=== PATIENT | male | born 1950 | race Asian ===

== ENCOUNTER 2018-03-27 17:34 | Emergency (ER) | payer SELFPAY | END 2018-03-27 19:02 | disposition left against medical advice (07) | LOC: EMS 17:36 | DX: Z00.8 Encounter for other general examination (principal); Z53.21 Procedure and treatment not carried out due to patient leaving prior to being seen by health care provider ==

== ENCOUNTER 2019-07-06 23:54 | Emergency (ER) | payer MEDICARE ==
[~2019-07-06] VITALS: Ht 167.6 cm; Wt 72.7 kg
[2019-07-06 23:59] VITALS: BP 184/130
== END 2019-07-07 00:36 | disposition left against medical advice (07) ==
LOC: EMS 23:55
DX: I10 Essential (primary) hypertension (principal); J45.909 Unspecified asthma, uncomplicated; E11.9 Type 2 diabetes mellitus without complications; E78.00 Pure hypercholesterolemia, unspecified; F17.210 Nicotine dependence, cigarettes, uncomplicated; Z86.73 Personal history of transient ischemic attack (TIA), and cerebral infarction without residual deficits; Z79.4 Long term (current) use of insulin

== ENCOUNTER 2019-07-10 12:23 | Emergency (ER) | payer MEDICARE ==
[~2019-07-10] VITALS: Ht 160 cm; Wt 54.5 kg
[2019-07-10] MEDS ORDERED: ACETAMINOPHEN 325 MG TABLET PO ONE (13:45)
[2019-07-10 15:15] VITALS: BP 159/106
[2019-07-11 07:57] LABS: GLUCOSE,POINT OF CARE 163 MG/DL (70-110)
== END 2019-07-10 15:15 | disposition home or self-care (01) ==
LOC: EMS 12:25
DX: S60.222A Contusion of left hand, initial encounter (principal); E11.9 Type 2 diabetes mellitus without complications; E78.00 Pure hypercholesterolemia, unspecified; I10 Essential (primary) hypertension; Z87.891 Personal history of nicotine dependence; W22.8XXA Striking against or struck by other objects, initial encounter; Y93.89 Activity, other specified; Y92.89 Other specified places as the place of occurrence of the external cause; Y99.8 Other external cause status

== ENCOUNTER 2022-06-21 13:29 | Emergency (ER) | payer MEDICARE, OTHER ==
[~2022-06-21] VITALS: Ht 167.6 cm; Wt 65.9 kg
[2022-06-21 14:44] LABS: BASOPHILS % (AUTO) 0.3 % (0.0-2.0); EOSINOPHILS % (AUTO) 5.4 % (1.0-6.0); HEMATOCRIT 36.9 % (41-53); HEMOGLOBIN 12.4 g/dL (13.5-17.5); LYMPHOCYTES # (AUTO) 2.1 K/uL (1.0-4.8); LYMPHOCYTES % (AUTO) 26.6 % (22.0-44.0); MEAN CORPUSCULAR HEMOGLOBIN 29.5 pg (26.0-34.0); MEAN CORPUSCULAR HGB CONC 33.6 G/dL (31.0-37.0); MEAN CORPUSCULAR VOLUME 88 fL (80-100); MONOCYTES # (AUTO) 0.6 K/uL (0.1-1.0); MONOCYTES % (AUTO) 7.1 % (2.0-9.0); NEUTROPHILS # (AUTO) 4.7 K/uL (1.8-7.7); NEUTROPHILS % (AUTO) 60.6 % (40.0-70.0); PLATELET COUNT (AUTO) 274 K/uL (150-450); RED CELL DISTRIBUTION WIDTH 13.5 % (11.5-14.5)
[2022-06-21 14:52] LABS: ANION GAP 5 mmol/L (8-16); CARBON DIOXIDE 28 mmol/L (22-29); CHLORIDE 108 mmol/L (98-107); CREATININE 0.94 mg/dL (0.60-1.30); GLUCOSE,RANDOM 153 mg/dL (70-110); POTASSIUM 3.6 mmol/L (3.5-5.1); SODIUM SERUM 141 mmol/L (136-145); UREA NITROGEN, BLOOD 10 mg/dL (7-18)
[2022-06-21 14:53] LABS: CALCIUM, TOTAL 8.5 mg/dL (8.8-10.5); GLOMERULAR FILTR. RATE CALC > 60 mL/min (>60)
[2022-06-21 14:56] LABS: PROTHROMBIN TIME 10.3 SEC (9.4-11.6)
[2022-06-21 14:58] LABS: ALANINE AMINOTRANSFERASE 14 U/L (12-78); ALKALINE PHOSPHATASE 60 U/L (46-116); ASPARTATE AMINOTRANSFERASE 15 U/L (15-37); BILIRUBIN,TOTAL 0.2 mg/dL (0.1-1.0); LIPASE 57 U/L (73-393); TOTAL PROTEIN, SERUM 6.6 g/dL (6.4-8.2)
[2022-06-21 15:01] VITALS: BP 145/93
[2022-06-21] MEDS ORDERED: DOCU-350 PO (15:29)
== END 2022-06-21 15:59 | disposition home or self-care (01) ==
LOC: EMS 13:35
DX: R10.84 Generalized abdominal pain (principal); K59.00 Constipation, unspecified; J45.909 Unspecified asthma, uncomplicated; E11.9 Type 2 diabetes mellitus without complications; E78.00 Pure hypercholesterolemia, unspecified; I10 Essential (primary) hypertension; Z87.891 Personal history of nicotine dependence
CPT/HCPCS: 71045; 80053; 82962; 83690; 84484; 85025; 85610; 86850; 86900; 86901; 93005; 99285; 36415-L1; 36415-TC

== ENCOUNTER 2024-04-09 08:13 | Emergency (ER) | payer MEDICARE, OTHER ==
[~2024-04-09] VITALS: Ht 162.6 cm; Wt 70.5 kg
[~2024-04-09 08:13] MED LIST: DOCU-412 PO
[2024-04-09 08:23] VITALS: TEMP 97.9
[2024-04-09 08:36] LABS: COVID AG,FIA SOURCE NASAL SWAB
[2024-04-09 08:53] LABS: SARS-COV2 (COVID) ANTIGEN,FIA Negative (Negative)
[2024-04-09 08:54] LABS: INFLUENZA TYPE A NEGATIVE FOR TYPE A (NEGATIVE); INFLUENZA TYPE B NEGATIVE FOR TYPE B (NEGATIVE)
[2024-04-09 09:00] LABS: BASOPHILS % (AUTO) 0.4 % (0.0-2.0); EOSINOPHILS % (AUTO) 3.7 % (1.0-6.0); HEMATOCRIT 47.8 % (41-53); HEMOGLOBIN 16.1 g/dL (13.5-17.5); LYMPHOCYTES # (AUTO) 2.7 K/uL (1.0-4.8); MEAN CORPUSCULAR HEMOGLOBIN 29.3 pg (26.0-34.0); MEAN CORPUSCULAR HGB CONC 33.7 G/dL (31.0-37.0); MEAN CORPUSCULAR VOLUME 87 fL (80-100); MONOCYTES # (AUTO) 0.6 K/uL (0.1-1.0); MONOCYTES % (AUTO) 8.7 % (2.0-9.0); NEUTROPHILS # (AUTO) 3.1 K/uL (1.8-7.7); NEUTROPHILS % (AUTO) 47.2 % (40.0-70.0); PLATELET COUNT (AUTO) 273 K/uL (150-450); RED CELL DISTRIBUTION WIDTH 13.7 % (11.5-14.5); WHITE BLOOD COUNT (AUTO) 6.6 K/uL (4.5-11.0)
[2024-04-09 09:15] LABS: ANION GAP 9 mmol/L (8-16); CALCIUM, TOTAL 9.2 mg/dL (8.8-10.5); CARBON DIOXIDE 31 mmol/L (22-29); CHLORIDE 102 mmol/L (98-107); CREATININE 0.82 mg/dL (0.60-1.30); GLOMERULAR FILTR. RATE CALC > 60 mL/min (>60); GLUCOSE,RANDOM 173 mg/dL (70-110); POTASSIUM 4.5 mmol/L (3.5-5.1); SODIUM SERUM 142 mmol/L (136-145); UREA NITROGEN, BLOOD 14 mg/dL (7-18)
[2024-04-09 09:24] LABS: TROPONIN I-HIGH SENSITIVITY 16 ng/L (<76)
[2024-04-09 09:36] VITALS: BP 142/96; PULSE 99; RESP 13; O2SAT 99
[2024-04-09] MEDS ORDERED: ALBUTEROL SULFATE 2.5 MG/0.5 ML NEB SOLUTION NEB ONE (10:15)
[2024-04-09] MEDS ORDERED: IPRATROPIUM BROMIDE 0.5 MG/2.5 ML NEB SOLUTION NEB ONE (10:15)
[2024-04-09 17:51] LABS: GLUCOMETER DEV NAME(LOC) ER.7; GLUCOSE,POINT OF CARE 129 MG/DL (70-110)
== END 2024-04-09 13:18 | disposition left against medical advice (07) ==
LOC: EMS 08:15
DX: R06.00 Dyspnea, unspecified (principal); R07.9 Chest pain, unspecified; R53.1 Weakness; J45.909 Unspecified asthma, uncomplicated; E11.9 Type 2 diabetes mellitus without complications; I10 Essential (primary) hypertension; E78.00 Pure hypercholesterolemia, unspecified; Z20.822 Contact with and (suspected) exposure to COVID-19
CPT/HCPCS: 71045; 80048; 82962; 84484; 85025; 87804; 93005; 99285; 36415-L1; 36415-TC; J7613

== ENCOUNTER 2024-12-25 11:03 | Emergency (ER) | payer MEDICARE ==
[~2024-12-25] VITALS: Ht 168.9 cm; Wt 67.3 kg
[~2024-12-25 11:03] MED LIST changes: +ASPI-1444 PO; +ATOR20TA65 PO; -DOCU-412 PO; +METF-1211 PO
[2024-12-25 11:13] VITALS: TEMP 97.3
[2024-12-25 11:36] LABS: GLUCOMETER DEV NAME(LOC) ERT.7; GLUCOSE,POINT OF CARE 152 MG/DL (70-110)
[2024-12-25 11:42] LABS: PLATELET COUNT (AUTO) 277 K/uL (150-450); RED BLOOD CELL COUNT(AUTO) 5.50 MIL/uL (4.50-5.90); RED CELL DISTRIBUTION WIDTH 13.4 % (11.5-14.5); WHITE BLOOD COUNT (AUTO) 6.6 K/uL (4.5-11.0)
[2024-12-25 11:54] LABS: CALCIUM, TOTAL 9.4 mg/dL (8.8-10.5); CREATININE 0.80 mg/dL (0.60-1.30); GLOMERULAR FILTR. RATE CALC > 60 mL/min (>60); GLUCOSE,RANDOM 155 mg/dL (70-110); SODIUM SERUM 139 mmol/L (136-145); UREA NITROGEN, BLOOD 16 mg/dL (7-18)
[2024-12-25 12:04] LABS: TROPONIN I-HIGH SENSITIVITY 26 ng/L (<76)
[2024-12-25] MEDS: IBUPROFEN 600 MG TABLET PO ONE (12:39)
[2024-12-25 14:30] VITALS: BP 132/5; PULSE 82; RESP 16; O2SAT 99
== END 2024-12-25 14:31 | disposition home or self-care (01) ==
LOC: EMS 11:32
DX: R07.89 Other chest pain (principal); R05.9 Cough, unspecified; E11.9 Type 2 diabetes mellitus without complications; E78.00 Pure hypercholesterolemia, unspecified; I10 Essential (primary) hypertension; J45.909 Unspecified asthma, uncomplicated; Z79.82 Long term (current) use of aspirin; Z86.73 Personal history of transient ischemic attack (TIA), and cerebral infarction without residual deficits; Z87.891 Personal history of nicotine dependence; Z79.899 Other long term (current) drug therapy
CPT/HCPCS: 71045; 80048; 82962; 84484; 85025; 93005; 99285; 36415-L1; 36415-TC